=== PATIENT | male | born 1995 | race African-American/Black ===

== ENCOUNTER 2017-02-15 13:17 | Emergency (ER) | payer OTHER ==
--- NOTE | 2017-02-15 13:51 | PHYS DOC ---
General Chief Complaint: PUNCTURE WOUND Stated Complaint: PUNCTURE WOUND (SEWING NEEDLE) Time Seen by MD: 13:26 Source: patient Exam Limitations: no limitations Problems: History of Present Illness Initial Comments Pt is 21/M to ED for work comp finger injury. 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 Needle didn't penetrate deeply, pt denies any c/o but sent to ED for tetanus. No other injury, no prearrival treatment. No body fluid exposure. Onset: just prior to arrival Severity: mild Pain/Injury Location: left thumb Method of Injury: other Modifying Factors: improves with other Allergies: Coded Allergies: No Known Drug Allergies (Unverified , 02/15/17) Past Medical History Medical History: no pertinent history Surgical History: noncontributory Social History Smoker: non-smoker Alcohol: none Drugs: none Review of Systems Constitutional: denies chills, denies fever Respiratory: denies cough, denies shortness of breath Cardiovascular: denies chest pain, denies palpitations Gastrointestinal: denies nausea, denies vomiting Musculoskeletal: denies back pain, denies joint swelling, denies neck pain Skin: see HPI Psychiatric/Neurological: denies numbness, denies paresthesia Physical Exam General Appearance: WD/WN, no apparent distress HEENT: normal ENT inspection Neck: non-tender, supple Cardiovascular/Respiratory: normal peripheral pulses, no respiratory distress Hand: normal inspection, non-tender, no evidence of injury (no puncture evident on exam) Neurologic/Tendon: normal sensation, normal motor functions, normal tendon functions, responds to pain, no evidence tendon injury Psychiatric: alert, oriented x 3 Skin: normal color, warm/dry Orders, Labs, Meds Tdap updated. Prophylaxis with antibiotics to prevent infection. Departure Time of Disposition: 13:50 Diagnosis: puncture wound thumb Prescriptions cephalexin Comments Follow up with doctor next week for recheck. Return to ED with new or changing symptoms. JODIE POSEY DO February 15, 2017 13:50
[2017-02-15] MEDS ORDERED: DIPHTH,PERTUSS(ACELL),TET TOX 0.5 ML DISP.SYRIN. VAX IM ONE (14:00)
[2017-02-15 15:05] VITALS: BP 111/79
== END 2017-02-15 15:05 | disposition home or self-care (01) ==
LOC: ER 13:17
DX: S61.032A Puncture wound without foreign body of left thumb without damage to nail, initial encounter (principal); W46.0XXA Contact with hypodermic needle, initial encounter; Y93.89 Activity, other specified; Y99.0 Civilian activity done for income or pay; Y92.510 Bank as the place of occurrence of the external cause
CPT/HCPCS: 90471; 90715; 99283-25